=== PATIENT | female | born 1990 | race Caucasian/White ===

== ENCOUNTER → 2023-07-10 08:25 | Outpatient (CLI) | payer BC, SELFPAY ==
--- NOTE | ~2023-07-10 | MR_ITS ---
MRI of the right knee Clinical history: Pain Technique: Coronal proton density and proton density-weighted images, sagittal proton-density and T2 fat-sat images, and axial proton-density fat-saturated images were acquired. Findings: Anterior and posterior cruciate ligaments are intact. Medial collateral ligament and the la teral collateral ligament complex are intact. Popliteus tendon is intact. Medial and lateral menisci are intact, without evidence of tear. Articular cartilage is well preserved in the medial lateral margins. There is focal area of grade 1 t o grade II chondromalacia along the medial patellar facet. Bone marrow signals are unremarkable. Extensor mechanism is intact. No significant joint effusion or Roth's cyst. Impression: Focal chondromalacia patella, as above. Reviewed, dictated and finalized at location M. [employer] Impression: Focal chondromalacia patella, as above.
== END ==
PROVIDERS: PCP Orthopaedic Surgery; Visit Provider Orthopaedic Surgery
DX: M25.561 Pain in right knee (principal); G89.29 Other chronic pain; M23.41 Loose body in knee, right knee
CPT/HCPCS: 73721